=== PATIENT | female | born 1970 | race Caucasian/White ===

== ENCOUNTER 2020-10-11 07:21 | Day surgery (SDC) | payer OTHER ==
[2020-10-10 11:18] VITALS: BMI 20.5
[~2020-10-11 07:21] MED LIST: Fentanyl 100 MCG/2 ML VIAL ONE; Fluorouracil 100 MG, Enoxaparin Sodium 25 MG, EPINEPHrine 0.3 MG in Ophthalmic Irrigati... IRR SCH; Midazolam HCl 2 mg/2 ml Vial ONE; PROPOFOL 20 ML ONE
[2020-10-11] MEDS ORDERED: Cyclopentolate W/ Phenylephrin 40 DROP/2 ML BOT ONE (07:39)
[2020-10-11] MEDS ORDERED: Cyclopentolate 1% Ophth Drops 15 ML BOT ONE (07:40)
[2020-10-11] MEDS ORDERED: Phenylephrine 2.5% Ophth Soln 5 ML BOT ONE (07:40)
[2020-10-11] MEDS ORDERED: Famotidine/PF 20 mg/2ml Vial ONE (08:08)
[2020-10-11] MEDS ORDERED: Fentanyl 100 MCG/2 ML VIAL ONE (08:58)
[2020-10-11] MEDS ORDERED: PROPOFOL 200 MG/20 ML VIAL ONE (09:32)
[2020-10-11] MEDS ORDERED: Metoclopramide HCl 10 MG/2 ML VIAL ONE ×2 (09:32→09:47)
[2020-10-11] MEDS ORDERED: Ketorolac Tromethamine 30 MG/ML VIAL ONE (09:32)
[2020-10-11] MEDS ORDERED: Bupivacaine PF 0.75% SDV 10 ML ONE (09:32)
[2020-10-11] MEDS ORDERED: Lidocaine 1% PF 5 ML VIAL ONE ×2 (09:32)
[2020-10-11] MEDS ORDERED: PHENYLEPHRINE-NS 100 MCG/ML 10 ML SYRINGE ONE (09:32)
[2020-10-11] MEDS ORDERED: Ondansetron PF 4 MG/2 ML Vial ONE ×2 (09:32→09:47)
[2020-10-11] MEDS ORDERED: CEFAZOLIN 1 GM VIAL ONE (09:32)
[2020-10-11] MEDS ORDERED: Maxitrol 0.1% Opth Oint 3.5 GM TUBE ONE (09:32)
[2020-10-11] MEDS ORDERED: Triamcinolone 40 MG/ML VIAL ONE (09:32)
[2020-10-11] MEDS ORDERED: Lidocaine 4% PF 5 ML AMP ONE (09:32)
== END 2020-10-11 12:25 | disposition home or self-care (01) ==
LOC: SDC 07:21
PROVIDERS: ATTEND Ophthalmology Retina Specialist
PROC: 08T53ZZ Resection of Left Vitreous, Percutaneous Approach (ICD-10-PCS; principal; 2020-10-11)
DX: H33.022 Retinal detachment with multiple breaks, left eye (principal); E78.5 Hyperlipidemia, unspecified; E03.9 Hypothyroidism, unspecified; Z79.899 Other long term (current) drug therapy
CPT/HCPCS: 67025; J0171; J0690; J1650; J1885; J2250; J2405; J2704; J2765; J3010; J3301; J3490; J9190; S0028